=== PATIENT | female | born 1950 | race Caucasian/White ===

== ENCOUNTER 2018-01-18 08:38 | Day surgery (SDC) | payer MEDICARE ==
[~2018-01-18] VITALS: Ht 165.1 cm; Wt 54.5 kg
[~2018-01-18 08:38] MED LIST: ASPI-1197 PO; CHOL100044 PO; FLUO20CA30 PO; OMEP20TA25 PO; SODIUM CHLORIDE 0.9% 1000ML 1,000 ML IV ONE; VITA1CAP PO
[2018-01-18 09:06] VITALS: BP 133/67
[2018-01-18] MEDS ORDERED: PROPOFOL 10 MG/ML 20ML VIAL IV ONE ×2 (09:53→10:04)
[2018-01-18 10:14] VITALS: BP 80/50
== END 2018-01-18 10:47 ==
LOC: DAH 08:38
PROVIDERS: ATTEND Internal Medicine Gastroenterology
DX: Z12.11 Encounter for screening for malignant neoplasm of colon (principal); D12.4 Benign neoplasm of descending colon; J45.909 Unspecified asthma, uncomplicated; Z90.710 Acquired absence of both cervix and uterus; Z90.49 Acquired absence of other specified parts of digestive tract; Z79.899 Other long term (current) drug therapy
CPT/HCPCS: 45380; 88305; A4606; J2704 ×2; J7030